=== PATIENT | female | born 1945 | race Caucasian/White ===

== ENCOUNTER 2022-01-05 13:38 | Outpatient (CLI) | payer MEDICARE, BC | END 2022-01-05 13:39 | disposition home or self-care (01) | LOC: CSHMAMMO 13:38 | PROVIDERS: ATTEND Internal Medicine Hematology & Oncology | DX: Z13.820 Encounter for screening for osteoporosis (principal); M85.89 Other specified disorders of bone density and structure, multiple sites; T38.6X5A Adverse effect of antigonadotrophins, antiestrogens, antiandrogens, not elsewhere classified, initial encounter | CPT/HCPCS: 77080 ==

== ENCOUNTER 2022-04-30 10:09 | Outpatient (CLI) | payer MEDICARE, BC | END 2022-04-30 10:10 | disposition home or self-care (01) | LOC: CSHCT 10:09 | PROVIDERS: ATTEND Family Medicine | DX: Z12.2 Encounter for screening for malignant neoplasm of respiratory organs (principal); Z87.891 Personal history of nicotine dependence | CPT/HCPCS: 71271 ==

== ENCOUNTER 2023-02-25 13:01 | Outpatient (CLI) | payer MEDICARE, BC | END 2023-02-25 13:02 | disposition home or self-care (01) | LOC: CSHMAMMO 13:01 | PROVIDERS: ATTEND Internal Medicine Hematology & Oncology | DX: Z13.820 Encounter for screening for osteoporosis (principal); M81.0 Age-related osteoporosis without current pathological fracture; M85.851 Other specified disorders of bone density and structure, right thigh; M85.88 Other specified disorders of bone density and structure, other site | CPT/HCPCS: 77080 ==

== ENCOUNTER 2023-03-10 11:20 | Emergency (ER) | payer MEDICARE, BC ==
[2023-03-10] MEDS ORDERED: Ketorolac Tromethamine 30 MG/ML VIAL ONE (13:28)
== END 2023-03-10 14:32 | disposition home or self-care (01) ==
LOC: CSHERS 11:20
DX: M79.10 Myalgia, unspecified site (principal); I11.9 Hypertensive heart disease without heart failure; I50.9 Heart failure, unspecified
CPT/HCPCS: 93005; 96372; J1885

== ENCOUNTER 2025-05-03 06:48 | Inpatient (IN) | payer MEDICARE ==
[2025-05-03 07:47] LABS: Hematocrit 39.9 % (34.9-44.5); Hemoglobin 13.2 g/dL (12.0-15.5); Mean Corpuscular Hemoglobin 31.1 pg (27.0-33.0); Mean Corpuscular Volume 94.1 fL (81.6-98.3); Platelet Count 157 10x3/uL (150-450); Red Blood Cell (RBC) Count 4.24 10x6/uL (3.90-5.03); White Blood Cell (WBC) Count 11.45 10x3/uL (3.5-10.5)
[2025-05-03 08:06] LABS: ALT (SGPT) 20 U/L (Less than 34); AST (SGOT) 30 U/L (11-34); Albumin 2.9 g/dL (3.1-4.5); Alkaline Phosphatase 81 U/L (40-110); Anion Gap 21 mmol/L (10-20); BUN (Urea Nitrogen) 25 mg/dL (9.8-20.1); Bilirubin, Total 0.4 mg/dL (0.3-1.2); Calc. Creatinine Clearance 0 mL/min (70-130); Calcium 8.5 mg/dL (7.8-10.44); Carbon Dioxide 21 mmol/L (23-31); Chloride 100 mmol/L (98-107); Globulin 3.6 g/dL (2.4-3.5); Glucose 169 mg/dL (83-110); Potassium 3.8 mmol/L (3.5-5.1); Sodium 138 mmol/L (136-145)
[2025-05-03 08:26] LABS: Troponin I 2.539 ng/mL (< 0.028)
[2025-05-03 08:37] LABS: RBC Morphology Within Normal Limits
[2025-05-03 08:38] LABS: INR-International Normal Ratio 1.0; PTT 28.2 sec (22.0-33.0); Prothrombin Time 11.0 sec (9.5-12.1)
[2025-05-03 08:38] LABS: MDiff Complete? YES; Platelet Adequacy Comment Appears Adequate
[2025-05-03] MEDS ORDERED: Aspirin Chewable 81 MG TAB ONE (08:38)
[2025-05-03 09:04] LABS: Glucose, Urine (Dipstick) Normal (Negative); Leukocyte 500 (Negative); Protein, Urine (Dipstick) 500 mg/dl (Neg-Trace); Specific Gravity, Urine 1.010 (1.005-1.030)
[2025-05-03 09:14] LABS: Bacteria/HPF 2+ HPF (None Seen); CAUTI Indications for Culture Pelvic or flank pain; Mucous/LPF 1+ LPF (<2+); RBC/HPF Greater than 50 HPF (0-3); WBC/HPF Greater than 50 HPF (0-3)
[2025-05-03 09:15] LABS: Urine Culture Reflex Yes Yes
[2025-05-03] MEDS ORDERED: Enoxaparin 80 MG (0.8 mL) SYRINGE ONE (10:07)
[2025-05-03] MEDS ORDERED: Melatonin 3 MG TAB PO PRN (10:15)
[2025-05-03] MEDS ORDERED: Senokot S 8.6-50 MG TAB PO PRN (10:15)
[2025-05-03 11:37] LABS: Troponin I 3.921 ng/mL (< 0.028)
[2025-05-03 11:54] VITALS: BMI 28.5
[2025-05-03 14:01] LABS: Anion Gap 13 mmol/L (10-20); BUN (Urea Nitrogen) 25 mg/dL (9.8-20.1); Calc. Creatinine Clearance 39 mL/min (70-130); Calcium 6.9 mg/dL (7.8-10.44); Carbon Dioxide 23 mmol/L (23-31); Chloride 107 mmol/L (98-107); Glucose 188 mg/dL (83-110); Potassium 3.8 mmol/L (3.5-5.1); Sodium 139 mmol/L (136-145)
[2025-05-03 14:10] LABS: Troponin I 3.651 ng/mL (< 0.028)
[2025-05-03 17:04] LABS: Troponin I 3.221 ng/mL (< 0.028)
[2025-05-03] MEDS: Acetaminophen 325 MG TAB PO PRN (19:20)
[2025-05-03] MEDS: DULoxetine 30 MG CAP PO SCH (20:45)
[2025-05-03] MEDS: Ezetimibe 10 MG TAB PO SCH (20:45)
[2025-05-03] MEDS: Carvedilol 3.125 MG TAB PO SCH (20:46)
[2025-05-04 05:05] LABS: Hematocrit 35.9 % (34.9-44.5); Hemoglobin 11.8 g/dL (12.0-15.5); Mean Corpuscular Hemoglobin 31.4 pg (27.0-33.0); Mean Corpuscular Volume 95.5 fL (81.6-98.3); Platelet Count 135 10x3/uL (150-450); Red Blood Cell (RBC) Count 3.76 10x6/uL (3.90-5.03); White Blood Cell (WBC) Count 14.89 10x3/uL (3.5-10.5)
[2025-05-04 05:10] LABS: MDiff Complete? YES; Platelet Adequacy Comment Appears Decreased; RBC Morphology Within Normal Limits
[2025-05-04 05:14] LABS: Anion Gap 15 mmol/L (10-20); BUN (Urea Nitrogen) 22 mg/dL (9.8-20.1); Calc. Creatinine Clearance 51 mL/min (70-130); Calcium 7.5 mg/dL (7.8-10.44); Carbon Dioxide 21 mmol/L (23-31); Chloride 108 mmol/L (98-107); Glucose 168 mg/dL (83-110); Potassium 3.9 mmol/L (3.5-5.1); Sodium 140 mmol/L (136-145)
[2025-05-04 09:18] LABS: Troponin I 3.474 ng/mL (< 0.028)
[2025-05-04] MEDS: PHOS-NAK 1 PKT PACK PO SCH (12:38)
[2025-05-04 15:07] LABS: Anion Gap 13 mmol/L (10-20); BUN (Urea Nitrogen) 17 mg/dL (9.8-20.1); Calc. Creatinine Clearance 59 mL/min (70-130); Calcium 7.2 mg/dL (7.8-10.44); Carbon Dioxide 22 mmol/L (23-31); Chloride 108 mmol/L (98-107); Glucose 203 mg/dL (83-110); Potassium 3.5 mmol/L (3.5-5.1); Sodium 139 mmol/L (136-145)
[2025-05-04 15:47] LABS: Troponin I 3.160 ng/mL (< 0.028)
[2025-05-04] MEDS: Ergocalciferol 1.25 MG(50,000 UNITS) CAP PO SCH (16:36)
[2025-05-04] MEDS: Aspirin 81 mg Enteric Coated Tablet PO SCH (18:16)
[2025-05-04] MEDS: Enoxaparin 40 MG (0.4 mL) SYRINGE SC SCH (20:40)
[2025-05-04] MEDS: Pantoprazole 40 MG DR.TAB PO SCH (20:40)
[2025-05-04] MEDS: Senokot S 8.6-50 MG TAB PO SCH (20:43)
[2025-05-05 05:01] LABS: #Basophils Less than 0.03 10x3/uL (0.0-0.2); #Eosinophils Less than 0.03 10x3/uL (0.0-0.5); #Monocytes 0.97 10x3/uL (0.0-1.1); #Neutrophils 11.49 10x3/uL (1.5-8.4); %Basophils 0.1 % (0.0-2.0); %Eosinophils 0.1 % (0.0-6.0); %Lymphocytes 8.0 % (18.0-47.0); %Monocytes 7.1 % (0.0-10.0); %Neutrophils 84.0 % (40.0-75.0); Hematocrit 35.0 % (34.9-44.5); Hemoglobin 11.3 g/dL (12.0-15.5); Mean Corpuscular Hemoglobin 30.6 pg (27.0-33.0); Mean Corpuscular Volume 94.9 fL (81.6-98.3); Platelet Count 149 10x3/uL (150-450); Red Blood Cell (RBC) Count 3.69 10x6/uL (3.90-5.03); White Blood Cell (WBC) Count 13.69 10x3/uL (3.5-10.5)
[2025-05-05 05:22] LABS: Anion Gap 13 mmol/L (10-20); BUN (Urea Nitrogen) 17 mg/dL (9.8-20.1); Calc. Creatinine Clearance 65 mL/min (70-130); Calcium 7.4 mg/dL (7.8-10.44); Carbon Dioxide 25 mmol/L (23-31); Chloride 109 mmol/L (98-107); Glucose 133 mg/dL (83-110); Magnesium 2.1 mg/dL (1.6-2.6); Potassium 3.9 mmol/L (3.5-5.1); Sodium 143 mmol/L (136-145)
[2025-05-05] MEDS: PHOS-NAK 1 PKT PACK PO SCH (08:35)
[2025-05-05] MEDS: Aspirin 81 mg Enteric Coated Tablet PO SCH (09:56)
[2025-05-05] MEDS ORDERED: Iopamidol 300 61% 100 ML VIAL FS ONE (11:22)
[2025-05-06 04:19] LABS: #Basophils 0.03 10x3/uL (0.0-0.2); #Eosinophils 0.06 10x3/uL (0.0-0.5); #Monocytes 0.90 10x3/uL (0.0-1.1); #Neutrophils 9.47 10x3/uL (1.5-8.4); %Basophils 0.3 % (0.0-2.0); %Eosinophils 0.5 % (0.0-6.0); %Lymphocytes 11.7 % (18.0-47.0); %Monocytes 7.5 % (0.0-10.0); %Neutrophils 79.0 % (40.0-75.0); Hematocrit 35.4 % (34.9-44.5); Hemoglobin 11.4 g/dL (12.0-15.5); Mean Corpuscular Hemoglobin 30.6 pg (27.0-33.0); Mean Corpuscular Volume 95.2 fL (81.6-98.3); Platelet Count 160 10x3/uL (150-450); Red Blood Cell (RBC) Count 3.72 10x6/uL (3.90-5.03); White Blood Cell (WBC) Count 11.98 10x3/uL (3.5-10.5)
[2025-05-06 04:37] LABS: ALT (SGPT) 35 U/L (Less than 34); AST (SGOT) 67 U/L (11-34); Albumin 2.3 g/dL (3.1-4.5); Alkaline Phosphatase 69 U/L (40-110); Anion Gap 13 mmol/L (10-20); BUN (Urea Nitrogen) 14 mg/dL (9.8-20.1); Bilirubin, Total 0.1 mg/dL (0.3-1.2); Calc. Creatinine Clearance 63 mL/min (70-130); Calcium 7.5 mg/dL (7.8-10.44); Carbon Dioxide 25 mmol/L (23-31); Chloride 109 mmol/L (98-107); Globulin 3.5 g/dL (2.4-3.5); Glucose 146 mg/dL (83-110); Magnesium 2.2 mg/dL (1.6-2.6); Potassium 3.9 mmol/L (3.5-5.1); Sodium 143 mmol/L (136-145)
[2025-05-06] MEDS ORDERED: Electrolyte Replacement Protocol 1 EACH FS SCH (08:15)
[2025-05-06] MEDS ORDERED: Magnesium Sulfate In Water 4 GM in Premix 1 BAG IVPB PRN (08:30)
[2025-05-06] MEDS ORDERED: Potassium Chloride 20 MEQ in Premix 1 BAG IVPB PRN (08:30)
[2025-05-06] MEDS: PHOS-NAK 1 PKT PACK PO PRN (09:08)
[2025-05-06 14:45] LABS: Anion Gap 15 mmol/L (10-20); BUN (Urea Nitrogen) 11 mg/dL (9.8-20.1); Calc. Creatinine Clearance 73 mL/min (70-130); Calcium 7.3 mg/dL (7.8-10.44); Carbon Dioxide 24 mmol/L (23-31); Chloride 108 mmol/L (98-107); Glucose 131 mg/dL (83-110); Potassium 3.5 mmol/L (3.5-5.1); Sodium 143 mmol/L (136-145)
[2025-05-07 04:00] LABS: Hematocrit 34.4 % (34.9-44.5); Hemoglobin 11.0 g/dL (12.0-15.5); Mean Corpuscular Hemoglobin 30.6 pg (27.0-33.0); Mean Corpuscular Volume 95.8 fL (81.6-98.3); Platelet Count 192 10x3/uL (150-450); Red Blood Cell (RBC) Count 3.59 10x6/uL (3.90-5.03); White Blood Cell (WBC) Count 14.88 10x3/uL (3.5-10.5)
[2025-05-07 04:02] LABS: MDiff Complete? YES; Platelet Adequacy Comment Appears Adequate; RBC Morphology Within Normal Limits
[2025-05-07 04:10] LABS: ALT (SGPT) 43 U/L (Less than 34); AST (SGOT) 45 U/L (11-34); Albumin 2.3 g/dL (3.1-4.5); Alkaline Phosphatase 65 U/L (40-110); Anion Gap 14 mmol/L (10-20); BUN (Urea Nitrogen) 12 mg/dL (9.8-20.1); Bilirubin, Total 0.3 mg/dL (0.3-1.2); Calc. Creatinine Clearance 58 mL/min (70-130); Calcium 7.4 mg/dL (7.8-10.44); Carbon Dioxide 26 mmol/L (23-31); Chloride 108 mmol/L (98-107); Globulin 3.5 g/dL (2.4-3.5); Glucose 150 mg/dL (83-110); Magnesium 2.0 mg/dL (1.6-2.6); Potassium 3.5 mmol/L (3.5-5.1); Sodium 144 mmol/L (136-145)
[2025-05-07 13:11] VITALS: BP 147/66; TEMP 98.2
[2025-05-11] MEDS ORDERED: Ergocalciferol 1.25 MG(50,000 UNITS) CAP PO SCH (09:00)
== END 2025-05-07 18:10 | disposition home or self-care (01) | DRG 871 ==
LOC: CSHERS 06:48 → CSHTELE 10:14
PROVIDERS: ADMIT Internal Medicine; ATTEND Internal Medicine
DX: A41.51 Sepsis due to Escherichia coli [E. coli] (principal); G93.41 Metabolic encephalopathy; I21.A1 Myocardial infarction type 2; Z16.12 Extended spectrum beta lactamase (ESBL) resistance; N17.9 Acute kidney failure, unspecified; N30.00 Acute cystitis without hematuria; I50.32 Chronic diastolic (congestive) heart failure; I13.0 Hypertensive heart and chronic kidney disease with heart failure and stage 1 through stage 4 chronic kidney disease, or unspecified chronic kidney disease; R65.20 Severe sepsis without septic shock; I25.10 Atherosclerotic heart disease of native coronary artery without angina pectoris; E86.9 Volume depletion, unspecified; F31.9 Bipolar disorder, unspecified; F41.9 Anxiety disorder, unspecified; F20.9 Schizophrenia, unspecified; F10.90 Alcohol use, unspecified, uncomplicated; E83.39 Other disorders of phosphorus metabolism; E87.6 Hypokalemia; N18.2 Chronic kidney disease, stage 2 (mild); K21.9 Gastro-esophageal reflux disease without esophagitis; D69.59 Other secondary thrombocytopenia; D63.1 Anemia in chronic kidney disease; K76.0 Fatty (change of) liver, not elsewhere classified; I25.2 Old myocardial infarction; Z98.890 Other specified postprocedural states; Z95.1 Presence of aortocoronary bypass graft; Z90.710 Acquired absence of both cervix and uterus; Z90.13 Acquired absence of bilateral breasts and nipples; Z91.018 Allergy to other foods; Z88.8 Allergy status to other drugs, medicaments and biological substances; Z88.0 Allergy status to penicillin; Z88.7 Allergy status to serum and vaccine; Z79.899 Other long term (current) drug therapy; Z79.82 Long term (current) use of aspirin; Z87.891 Personal history of nicotine dependence; Z95.5 Presence of coronary angioplasty implant and graft; Z90.49 Acquired absence of other specified parts of digestive tract; C50.919 Malignant neoplasm of unspecified site of unspecified female breast; D63.0 Anemia in neoplastic disease
CPT/HCPCS: 36415; 71045; 74178; 76705; 80048; 80053; 81001; 82306; 83605; 83735; 83880; 84100; 84484; 85025; 85610; 85730; 86140; 87040; 87077; 87086; 87149; 87186; 93005; 93306; 96372; 96374; J1650; J2185; J7030; Q9967